=== PATIENT | male | born 1930 | race African-American/Black ===

== ENCOUNTER → 2017-02-25 | Emergency (ER) | payer OTHER ==
[~2017-02-25] MED LIST: TAMSULOSIN HCL 0.4 MG CAP.ER.24H (FP) PO ONE
[2017-02-25 19:40] VITALS: BP 151/94; PULSE 86; TEMP 98; BMI 25.4
--- NOTE | 2017-02-26 01:42 | PDOC ---
History of Present Illness - General History Source: Patient, Family, Old Records Exam Limitations: No Limitations - History of Present Illness Initial Comments: 02/26/17 01:43 The patient is a 86 year old female, with a significant past medical history of HTN and diabetes, who presents to the emergency department with urinary retention since yesterday. He states that he saw Dr. Hawley today who sent him into the ED for further evaluation. He notes that since hes been in the ED, he has urinated a small amount twice, which has helped relieve the pain caused by the retention. He also reports new onset back pain that started 2 days ago. He describes the back pain as mild, without radiation or modifying factors. The patient denies chest pain, shortness of breath, headache and dizziness. Denies fever, chills, nausea, vomit, diarrhea and constipation. Denies dysuria, frequency, urgency and hematuria. Allergies: None Past surgical history: Abdominal hernnia repair Social history: No alcohol, tobacco or drug use reported <Emiliano Kessler - Last Filed: 02/26/17 01:42> - General History Source: Patient Exam Limitations: No Limitations <Ariel Taylor - Last Filed: 02/26/17 02:13> <Emiliano Damico - Last Filed: 02/26/17 02:53> - General Chief Complaint: Urinary Problem Stated Complaint: PCP SENT/CATHETER Time Seen by Provider: 02/25/17 22:47 Past History <Emiliano Kessler - Last Filed: 02/26/17 01:42> - Past Medical History Diabetes: Yes - Surgical History Abdominal Surgery: Yes (HERNIA REPAIR) - Psycho/Social/Smoking Cessation Hx Anxiety: No Suicidal Ideation: No Smoking History: Never smoked Have you smoked in the past 12 months: No Hx Alcohol Use: No <Ariel Taylor - Last Filed: 02/26/17 02:13> <Emiliano Damico - Last Filed: 02/26/17 02:53> - Past Medical History Allergies/Adverse Reactions: Allergies Allergy/AdvReac Type Severity Reaction Status Date / Time No Known Allergies Allergy Verified 02/25/17 19:40 Home Medications: Ambulatory Orders Nystatin Powder [Nystop Powder -] 15 gm TP DAILY #1 powder 10/13/14 Terbinafine HCl [Lamisil At] 15 gm TP BID #1 cream..g. 10/13/14 Tamsulosin HCl [Flomax] 0.4 mg PO DAILY #14 cap.er.24h 02/26/17 Review of Systems - Review of Systems Able to Perform ROS?: Yes Comments:: 02/26/17 01:43 GENERAL/CONSTITUTIONAL: No fever or chills. No weakness. HEAD, EYES, EARS, NOSE AND THROAT: No change in vision. No ear pain or discharge. No sore throat. CARDIOVASCULAR: No chest pain or shortness of breath RESPIRATORY: No cough, wheezing, or hemoptysis. GASTROINTESTINAL: No nausea, vomiting, diarrhea or constipation. GENITOURINARY: +Urinary retention. No dysuria, frequency MUSCULOSKELETAL: No joint or muscle swelling or pain. No neck or back pain. SKIN: No rash NEUROLOGIC: No headache, vertigo, loss of consciousness, or change in strength/ sensation. ENDOCRINE: No increased thirst. No abnormal weight change HEMATOLOGIC/LYMPHATIC: No anemia, easy bleeding, or history of blood clots. ALLERGIC/IMMUNOLOGIC: No hives or skin allergy. <Emiliano Kessler - Last Filed: 02/26/17 01:42> *Physical Exam - Vital Signs Last Vital Signs Temp Pulse Resp BP Pulse Ox 98 F 86 18 151/94 99 02/25/17 19:37 02/25/17 19:37 02/25/17 19:37 02/25/17 19:37 02/25/17 19:37 - Physical Exam Comments: 02/26/17 01:44 GENERAL: Awake, alert, and fully oriented, in no acute distress HEAD: No signs of trauma, normocephalic, atraumatic EYES: PERRLA, EOMI, sclera anicteric, conjunctiva clear ENT: Auricles normal inspection, hearing grossly normal, nares patent, oropharynx clear without exudates. Moist mucosa NECK: Normal ROM, supple, no lymphadenopathy, JVD, or masses LUNGS: No distress, speaks full sentences, clear to auscultation bilaterally HEART: Regular rate and rhythm, normal S1 and S2, no murmurs, rubs or gallops, peripheral pulses normal and equal bilaterally. ABDOMEN: Soft, nontender, normoactive bowel sounds. No guarding, no rebound. No masses EXTREMITIES: Normal inspection, Normal range of motion, no edema. No clubbing or cyanosis. NEUROLOGICAL: Cranial nerves II through XII grossly intact. Normal speech, normal gait, no focal sensorimotor deficits SKIN: Warm, Dry, normal turgor, no rashes or lesions noted. <Emiliano Kessler - Last Filed: 02/26/17 01:42> - Vital Signs Last Vital Signs Temp Pulse Resp BP Pulse Ox 98 F 86 18 151/94 99 02/25/17 19:37 02/25/17 19:37 02/25/17 19:37 02/25/17 19:37 02/25/17 19:37 <Ariel Taylor - Last Filed: 02/26/17 02:13> - Vital Signs Last Vital Signs Temp Pulse Resp BP Pulse Ox 98 F 86 18 151/94 99 02/25/17 19:37 02/25/17 19:37 02/25/17 19:37 02/25/17 19:37 02/25/17 19:37 <Emiliano Damico - Last Filed: 02/26/17 02:53> ED Treatment Course - LABORATORY CBC & Chemistry Diagram: 02/26/17 01:30 02/26/17 01:30 <Emiliano Kessler - Last Filed: 02/26/17 01:42> - LABORATORY CBC & Chemistry Diagram: 02/26/17 01:30 02/26/17 01:30 - RADIOLOGY Radiology Studies Ordered: Category Date Time Status KIDNEY / RENAL US [US] Stat Ultrasound 02/25/17 23:16 Completed PELVIC / BLADDER US [US] Stat Ultrasound 02/25/17 23:19 Completed <Ariel Taylor - Last Filed: 02/26/17 02:13> - LABORATORY CBC & Chemistry Diagram: 02/26/17 01:30 02/26/17 01:30 - ADDITIONAL ORDERS Additional order review: Laboratory Results 02/26/17 02/26/17 01:44 01:30 Sodium 140 Potassium 4.1 Chloride 102 Carbon Dioxide 29 Anion Gap 9 BUN 14 Creatinine 1.1 Creat Clearance w eGFR > 60 Random Glucose 95 Calcium 9.3 Total Bilirubin 0.8 AST 9 L ALT 14 Alkaline Phosphatase 74 Total Protein 7.2 Albumin 4.1 Urine Color Yellow Urine Appearance Clear Urine pH 5.0 Ur Specific [place] 1.024 Urine Protein Negative Urine Glucose (UA) 2+ H Urine Ketones Negative Urine Blood Negative Urine Nitrite Negative Urine Bilirubin Negative Urine Urobilinogen Negative Ur Leukocyte Esterase Negative 02/26/17 01:30 RBC 4.21 MCV 94.5 MCHC 33.5 RDW 13.9 MPV 7.9 Neutrophils % 54.1 Lymphocytes % 26.8 Monocytes % 13.4 H Eosinophils % 5.1 H Basophils % 0.6 - Medications Given in the ED: ED Medications Discontinued Medications Generic Name Dose Route Start Last Admin Trade Name Jailene PRN Reason Stop Dose Admin Tamsulosin HCl 0.4 mg 02/26/17 01:42 02/26/17 02:26 Flomax - PO 02/26/17 01:43 0.4 mg ONCE ONE Administration <Emiliano Damico - Last Filed: 02/26/17 02:53> Medical Decision Making - Medical Decision Making 02/26/17 01:41 A portion of this note was documented by scribe services under my direction. I have reviewed the details of the note, within reason, and agree with the documentation with the following case summary and management plan written by me. Patient treated in the ED. Nursing notes are reviewed and incorporated into the medical decision-making. Vital signs reviewed. Peripheral IV access obtained by the nurse, laboratory studies are drawn and sent, reviewed and interpreted by myself. Vital Signs Temp Pulse Resp BP Pulse Ox 98 F 86 18 151/94 99 02/25/17 19:37 02/25/17 19:37 02/25/17 19:37 02/25/17 19:37 02/25/17 19:37 86-year-old male with past medical history of hypertension, diabetes, likely BPH presents with urinary retention since yesterday. Patient reports that he has developed some lower back pain. Has been having difficulty getting. However , upon arrival to ED, patient has been urinating somewhat difficulty more. Denies dysuria. But ultrasound demonstrates postvoid residual 114 mL. Case was discussed with the patient requests at this time to defer on the Ziegler catheter to trial Flomax. We'll obtain labs to rule out any postreduction renal failure. We'll obtain a UA to rule out cystitis. If workup is negative, what the patient follow -up with his primary care physician. 02/26/17 01:57 Ultrasound demonstrates no hydronephrosis. Bilateral renal cysts. Moist supportive residuals 114 mL. Psotate volume 130 mL. This is likely BPH causing the symptoms. At this time, given given that this is 140 mL and the patient reports that he is urinating now feeling better, we'll defer on Ziegler catheter placement. We'll start Flomax. Labs and urine pending. Case signed out to oncoming attending Dr. Damico for further management and disposition. <Ariel Taylor - Last Filed: 02/26/17 02:13> *DC/Admit/Observation/Transfer - Attestations Scribe Attestion: 02/26/17 01:44 Documentation prepared by Emiliano Kessler, acting as medical records receptionist for Ariel Taylor MD <Emiliano Kessler - Last Filed: 02/26/17 01:42> <Ariel Taylor - Last Filed: 02/26/17 02:13> - Discharge Dispostion Admit: No <Emiliano Damico - Last Filed: 02/26/17 02:53> Diagnosis at time of Disposition: Urinary retention BPH (benign prostatic hyperplasia) Qualifiers: Prostatic enlargement morphology: unspecified morphology Lower urinary tract symptom presence: presence of symptoms unspecified Qualified Code(s): N40.0 - Benign prostatic hyperplasia without lower urinary tract symptoms - Discharge Dispostion Disposition: HOME Condition at time of disposition: Stable - Prescriptions Prescriptions: Tamsulosin HCl [Flomax] 0.4 mg PO DAILY #14 cap.er.24h - Referrals Referrals: José Luis Nielson MD., [Staff Physician] - Johnny Zhou MD [Staff Physician] - - Patient Instructions Printed Discharge Instructions: DI for Benign Prostatic Hyperplasia, DI for Urinary Retention in Men Additional Instructions: Please take 0.4 mg flomax daily. Follow up with your primary care physician.
[2017-02-26 01:43] LABS: BASOPHIL 0.6 % (0-2.0); EOSINOPHIL 5.1 % (0-4.5); MCH 31.7 pg (25.7-33.7); MCHC 33.5 g/dl (32.0-35.9); MEAN CELL VOLUME 94.5 fl (80-96); MEAN PLT VOLUME 7.9 fl (7.5-11.1); NEUTROPHILS 54.1 % (42.8-82.8); PLATELET COUNT 175 K/MM3 (134-434); RDW 13.9 % (11.9-15.9); WHITE BLOOD COUNT 3.9 K/mm3 (4.0-10.0)
[2017-02-26 01:59] LABS: URINE APPEARANCE CLEAR; URINE BILIRUBIN NEGATIVE (NEGATIVE); URINE BLOOD NEGATIVE (NEGATIVE); URINE COLOR YELLOW; URINE GLUCOSE (UA) 2+ (NEGATIVE); URINE KETONE NEGATIVE (NEGATIVE); URINE LEUK ESTERASE NEGATIVE (NEGATIVE); URINE NITRITE NEGATIVE (NEGATIVE); URINE PROTEIN NEGATIVE (NEGATIVE); URINE UROBILINOGEN NEGATIVE E.U./dl (0.2-1.0)
[2017-02-26 02:08] LABS: ALBUMIN 4.1 g/dl (3.4-5.0); ANION GAP 9 (8-16); BILIRUBIN,TOTAL 0.8 mg/dL (0.2-1.0); CALCIUM 9.3 mg/dL (8.5-10.1); CO2 29 mmol/L (21-32); COCKROFT - GAULT 51.97; CREATININE 1.1 mg/dL (0.7-1.3); GLUCOSE,RANDOM 95 mg/dL (74-106); SGOT/AST 9 U/L (15-37); SGPT/ALT 14 U/L (12-78); TOT PROT 7.2 g/dl (6.4-8.2)
[2017-02-26 02:09] LABS: ALK PHOS 74 U/L (45-117)
== END | disposition home or self-care (01) ==
LOC: JER 19:12
DX: N40.1 Benign prostatic hyperplasia with lower urinary tract symptoms (principal); R33.8 Other retention of urine; I10 Essential (primary) hypertension; E11.9 Type 2 diabetes mellitus without complications
CPT/HCPCS: 36415; 76775-TC; 76856-TC; 80053; 81003; 85025; 87086; 99281-25

== ENCOUNTER 2017-07-16 12:40 | Emergency (ER) | payer OTHER ==
[2017-07-16 12:45] VITALS: BP 112/72; PULSE 81; TEMP 98.2; BMI 25.0
[2017-07-16] MEDS ORDERED: IBUPROFEN 600 MG TABLET (FP) PO ONE ×2 (13:41→13:43)
--- NOTE | 2017-07-16 13:41 | PDOC ---
History of Present Illness - General Chief Complaint: Eye Problem Stated Complaint: LT EYE INJURY Time Seen by Provider: 07/16/17 12:48 Past History - Past Medical History Allergies/Adverse Reactions: Allergies Allergy/AdvReac Type Severity Reaction Status Date / Time No Known Allergies Allergy Verified 07/16/17 12:45 Home Medications: Ambulatory Orders Tamsulosin HCl [Flomax] 0.4 mg PO DAILY #14 cap.er.24h 02/26/17 Aspirin Coated [Ecotrin -] 81 mg PO DAILY 07/16/17 Enalapril Maleate 2.5 mg PO ASDIR 07/16/17 Ibuprofen 600 mg PO TID PRN #21 tablet 07/16/17 Metformin HCl [Metformin HCl ER] 1,000 mg PO ASDIR 07/16/17 Tobramycin 0.3% Ophth Soln [Tobrex Ophthalmic Solution -] 2 drop OS Q6HPO #56 drops 07/16/17 Diabetes: Yes (type 2) - Surgical History Abdominal Surgery: Yes (HERNIA REPAIR) - Psycho/Social/Smoking Cessation Hx Anxiety: No Suicidal Ideation: No Smoking History: Never smoked Have you smoked in the past 12 months: No Information on smoking cessation initiated: No Hx Alcohol Use: No Drug/Substance Use Hx: No Substance Use Type: None *Physical Exam - Vital Signs Last Vital Signs Temp Pulse Resp BP Pulse Ox 98.2 F 81 17 112/72 100 07/16/17 12:44 07/16/17 12:44 07/16/17 12:44 07/16/17 12:44 07/16/17 12:44 *DC/Admit/Observation/Transfer Diagnosis at time of Disposition: Viral conjunctivitis, left eye - Discharge Dispostion Disposition: HOME Admit: No - Prescriptions Prescriptions: Ibuprofen 600 mg PO TID PRN #21 tablet PRN Reason: Pain Tobramycin 0.3% Ophth Soln [Tobrex Ophthalmic Solution -] 2 drop OS Q6HPO #56 drops - Referrals Referrals: Haider Strauss MD [Primary Care Provider] - Wilmer Dougherty MD [Staff Physician] - - Patient Instructions Printed Discharge Instructions: How to Instill Eye Drops, DI for Red Eye Additional Instructions: You have redness in your eye. Use the drops as prescribed. Finish the drops even if you feel better. Follow the dosing instructions on the bottle. Follow up with the eye doctor in one week. You have a phone number listed. You may take ibuprofen as needed for your back pain. You may take one pill every 8 hours. Follow up with your primary care doctor. Return to the ED if you have visual changes, increasing eye pain, or any changes in your symptoms.
== END 2017-07-16 14:17 | disposition home or self-care (01) ==
LOC: JERFT 12:40
DX: B30.9 Viral conjunctivitis, unspecified (principal); E11.9 Type 2 diabetes mellitus without complications
CPT/HCPCS: 99281-25

== ENCOUNTER 2017-11-05 12:58 | Emergency (ER) | payer OTHER ==
[2017-11-05 13:06] VITALS: BP 111/65; PULSE 75; TEMP 97.2; BMI 23.5
[2017-11-05] MEDS ORDERED: ERYTHROMYCIN 0.5% OPHTHALMIC OINTMENT 3.5 GM TUBE OS ONE (13:37)
[2017-11-05] MEDS ORDERED: ERYTHROMYCIN 0.5% OPHTHALMIC OINTMENT 3.5 GM TUBE ONE (13:40)
--- NOTE | 2017-11-05 13:41 | PDOC ---
History of Present Illness - General Chief Complaint: Eye Problem Stated Complaint: EYE PROBLEM Time Seen by Provider: 11/05/17 13:21 History Source: Patient Exam Limitations: No Limitations - History of Present Illness Initial Comments: 11/05/17 13:52 87 yr male c/o 2 weeks left eye discomfort tearing and a scratching feeling. Pt denies injury or foreign body. no vision changes, no headache or dizzyness. pt has history of cataracts. Severity: mild Past History - Past Medical History Allergies/Adverse Reactions: Allergies Allergy/AdvReac Type Severity Reaction Status Date / Time No Known Allergies Allergy Verified 11/05/17 13:00 Home Medications: Ambulatory Orders Tamsulosin HCl [Flomax] 0.4 mg PO DAILY #14 cap.er.24h 02/26/17 Aspirin Coated [Ecotrin -] 81 mg PO DAILY 07/16/17 Enalapril Maleate 2.5 mg PO ASDIR 07/16/17 Metformin HCl [Metformin HCl ER] 1,000 mg PO ASDIR 07/16/17 Erythromycin 0.5% Eye Ointment [Erythromycin 0.5% Eye Ointment -] 1 applic OS TID #1 tube 11/05/17 CVA: No COPD: No DVT: No Diabetes: Yes (type 2) - Surgical History Abdominal Surgery: Yes (HERNIA REPAIR) - Immunization History Immunization Up to Date: Yes - Suicide/Smoking/Psychosocial Hx Smoking History: Never smoked Have you smoked in the past 12 months: No If you are a former smoker, when did you quit?: 1969 Information on smoking cessation initiated: No Hx Alcohol Use: No Drug/Substance Use Hx: No Substance Use Type: None *Physical Exam - Vital Signs Last Vital Signs Temp Pulse Resp BP Pulse Ox 97.2 F L 75 16 111/65 100 11/05/17 13:00 11/05/17 13:00 11/05/17 13:00 11/05/17 13:00 11/05/17 13:00 - Physical Exam General Appearance: Yes: Nourished, Appropriately Dressed HEENT: positive: EOMI, CODIE, Other (left eye ) Neck: positive: Supple. negative: Tender, Lymphadenopathy (R), Lymphadenopathy (L) Respiratory/Chest: positive: Lungs Clear, Normal Breath Sounds. negative: Chest Tender Cardiovascular: positive: Regular Rhythm, Regular Rate Procedures - Eye Procedure Alcaine Drops Administered: Yes Antibiotic Oinment/Drps Admin: left eye (erythromycin) Medical Decision Making - Medical Decision Making 11/05/17 13:54 cc: left eye irritation, mild tearing no vision changes negative fluroscein stain negative fb on exam will place erythromycin ointment spoke with office and made appointment for follow up tomorrow at 1015am pt agrees with plan of care and for follow up care. *DC/Admit/Observation/Transfer Diagnosis at time of Disposition: Eye irritation - Discharge Dispostion Disposition: HOME Condition at time of disposition: Good - Prescriptions Prescriptions: Erythromycin 0.5% Eye Ointment [Erythromycin 0.5% Eye Ointment -] 1 applic OS TID #1 tube - Referrals Referrals: Haider Strauss MD [Primary Care Provider] - Wilmer Dougherty MD [Staff Physician] - - Patient Instructions Additional Instructions: follow with the eye doctor tomorrow at 1015 am use the eye ointment every 6hrs while awake - Post Discharge Activity
== END 2017-11-05 13:50 | disposition home or self-care (01) ==
LOC: JERFT 12:58
DX: H57.8 Other specified disorders of eye and adnexa (principal); E11.9 Type 2 diabetes mellitus without complications; Z79.84 Long term (current) use of oral hypoglycemic drugs
CPT/HCPCS: 99281-25

== ENCOUNTER 2017-11-27 17:43 | Emergency (ER) | payer OTHER ==
[2017-11-27 18:10] VITALS: BP 133/78; PULSE 80; TEMP 98.2; BMI 23.5
--- NOTE | 2017-11-27 19:03 | PDOC ---
History of Present Illness <Yolanda Christianson - Last Filed: 11/27/17 21:56> - General History Source: Patient, EMS, Family Exam Limitations: No Limitations - History of Present Illness Initial Comments: 11/27/17 20:12 The patient is an 87 year old male with past medical history of hypertension, diabetes, and BPH who arrives to the ED via EMS for altered mental status. As per family member, the patient left his house today to travel to the [place] via bus. When he got off the bus, he was noticed to have stumbled and fell, prompting EMS to be called. In the ED, the patient is asymptomatic and is only complaining of being tired. He denies fever or chills. <Christina Giraldo - Last Filed: 11/27/17 22:08> - General Chief Complaint: Altered Mental Status Stated Complaint: DAYSI Time Seen by Provider: 11/27/17 18:43 Past History - Past Medical History CVA: No COPD: No DVT: No Diabetes: Yes (type 2) Other medical history: glaucoma aleah eye - Surgical History Abdominal Surgery: Yes (HERNIA REPAIR) - Immunization History Immunization Up to Date: Yes - Suicide/Smoking/Psychosocial Hx Smoking History: Never smoked Have you smoked in the past 12 months: No If you are a former smoker, when did you quit?: 1970 Information on smoking cessation initiated: No Hx Alcohol Use: No Drug/Substance Use Hx: No Substance Use Type: None <Yolanda Christianson - Last Filed: 11/27/17 21:56> <Christina Giraldo - Last Filed: 11/27/17 22:08> - Past Medical History Allergies/Adverse Reactions: Allergies Allergy/AdvReac Type Severity Reaction Status Date / Time No Known Allergies Allergy Verified 11/27/17 18:10 Home Medications: Ambulatory Orders Tamsulosin HCl [Flomax] 0.4 mg PO DAILY #14 cap.er.24h 02/26/17 Aspirin Coated [Ecotrin -] 81 mg PO DAILY 07/16/17 Enalapril Maleate 2.5 mg PO ASDIR 07/16/17 Metformin HCl [Metformin HCl ER] 1,000 mg PO ASDIR 07/16/17 Erythromycin 0.5% Eye Ointment [Erythromycin 0.5% Eye Ointment -] 1 applic OS TID #1 tube 11/05/17 Review of Systems - Review of Systems Able to Perform ROS?: Yes Comments:: 11/27/17 20:21 GENERAL/CONSTITUTIONAL: Present: tired No fever or chills. HEAD, EYES, EARS, NOSE AND THROAT: No change in vision. No ear pain or discharge. No sore throat. CARDIOVASCULAR: No chest pain or shortness of breath. RESPIRATORY: No cough, wheezing, or hemoptysis. GASTROINTESTINAL: No nausea, vomiting, diarrhea or constipation. GENITOURINARY: No dysuria, frequency, or change in urination. MUSCULOSKELETAL: No joint or muscle swelling or pain. No neck or back pain. SKIN: No rash NEUROLOGIC: No headache, vertigo, loss of consciousness, or change in strength/ sensation. ENDOCRINE: No increased thirst. No abnormal weight change. HEMATOLOGIC/LYMPHATIC: No anemia, easy bleeding, or history of blood clots. ALLERGIC/IMMUNOLOGIC: No hives or skin allergy. All Other Systems: Reviewed and Negative <Christina Giraldo - Last Filed: 11/27/17 22:08> *Physical Exam - Vital Signs Last Vital Signs Temp Pulse Resp BP Pulse Ox 98.2 F 80 18 133/78 100 11/27/17 17:44 11/27/17 17:44 11/27/17 17:44 11/27/17 17:44 11/27/17 17:44 <Yolanda Christianson - Last Filed: 11/27/17 21:56> - Vital Signs Last Vital Signs Temp Pulse Resp BP Pulse Ox 98.2 F 80 18 133/78 100 11/27/17 17:44 11/27/17 17:44 11/27/17 17:44 11/27/17 17:44 11/27/17 17:44 - Physical Exam Comments: 11/27/17 20:21 GENERAL: Awake, alert and oriented to person and year, not place, in no acute distress HEAD: No signs of trauma EYES: PERRLA, EOMI, sclera anicteric, conjunctiva clear ENT: Auricles normal inspection, hearing grossly normal, nares patent, oropharynx clear without exudates. Moist mucosa NECK: Normal ROM, supple, no lymphadenopathy, JVD, or masses LUNGS: Breath sounds equal, clear to auscultation bilaterally. No wheezes, and no crackles HEART: Regular rate and rhythm, normal S1 and S2, no murmurs, rubs or gallops ABDOMEN: Soft, nontender, normoactive bowel sounds. No guarding, no rebound. No masses EXTREMITIES: Normal range of motion, no edema. No clubbing or cyanosis. No cords, erythema, or tenderness NEUROLOGICAL: Cranial nerves II through XII grossly intact. Normal speech, normal gait SKIN: Warm, Dry, normal turgor, no rashes or lesions noted. <Christina Giraldo - Last Filed: 11/27/17 22:08> ED Treatment Course - LABORATORY CBC & Chemistry Diagram: 11/27/17 20:25 11/27/17 20:25 <Yolanda Christianson - Last Filed: 11/27/17 21:56> - LABORATORY CBC & Chemistry Diagram: 11/27/17 20:25 11/27/17 20:25 - RADIOLOGY Radiograph Interpretation: 11/27/17 22:[address] as reviewed by Dr. Prater reports no acute intracranial hemmorhage, mass effect, midline shift, or hydrocephalus. Generalized, age appropriate volume loss with mild microvascular ischemic changes in the cerebral white matter <KristalChristina - Last Filed: 11/27/17 22:08> Medical Decision Making - Medical Decision Making 11/27/17 21:18 Pt presents to the ED after found confused on a bus. Patient is currently alert and oriented x 2 and denies complaints. Son reports that his father is normally able to travel by himself, but that he does get confused " when he is tired" and is unconcerned about the patient's current mental status. Patient and father deny any other associated symptoms. Will check basic labs to rule out metabolic derrangement and CT head to rule out intracranial pathology. Given that the son believes that the patient is close to his baseline, will probably discharge home if these are negative. I have advised the son that it is unsafe for the father to travel alone. 11/27/17 21:56 Labs are within normal limits. CT is negative. Will discharge home with follow up with PMD. <Yolanda Christianson - Last Filed: 11/27/17 21:56> *DC/Admit/Observation/Transfer - Discharge Dispostion Admit: No <Yolanda Christianson - Last Filed: 11/27/17 21:56> - Attestations Scribe Attestion: 11/27/17 20:23 Documentation prepared by Christina Giraldo, acting as medical diagnostic radiographer for Yolanda Christianson MD. <Christina Giraldo - Last Filed: 11/27/17 22:08> Diagnosis at time of Disposition: Dementia Qualifiers: Dementia type: unspecified type Dementia behavioral disturbance: without behavioral disturbance Qualified Code(s): F03.90 - Unspecified dementia without behavioral disturbance - Discharge Dispostion Disposition: HOME - Patient Instructions Printed Discharge Instructions: Dementia Additional Instructions: return to the ED for worsening confusion, passing out, other new or worsening symptoms. Make sure that you follow up with your doctor next week. Your father should not travel on his own any more.
[2017-11-27 20:39] LABS: BASO % 1.1 % (0-2.0); HEMOGLOBIN 13.4 GM/dL (11.7-16.9); MCH 31.3 pg (25.7-33.7); MONO % 9.2 % (3.8-10.2)
[2017-11-27 20:42] LABS: EOS % 1.1 % (0-4.5); HEMATOCRIT 40.4 % (35.4-49); LYMPH % 15.9 % (8-40); MCHC 33.2 g/dl (32.0-35.9); MEAN CELL VOLUME 94.3 fl (80-96); MEAN PLT VOLUME 8.2 fl (7.5-11.1); NEUT % 72.7 % (42.8-82.8); PLATELET COUNT 204 K/MM3 (134-434); RBC 4.28 M/mm3 (4.00-5.60); RDW 13.7 % (11.9-15.9); WHITE BLOOD COUNT 6.8 K/mm3 (4.0-10.0)
[2017-11-27 21:02] LABS: ALBUMIN 4.1 g/dl (3.4-5.0); ANION GAP 6 (8-16); BILIRUBIN,TOTAL 1.5 mg/dL (0.2-1.0); BLOOD UREA NITROGEN 20 mg/dL (7-18); CALCIUM 8.7 mg/dL (8.5-10.1); CHLORIDE 100 mmol/L (98-107); CO2 28 mmol/L (21-32); CREATININE 1.2 mg/dL (0.7-1.3); GLUCOSE,RANDOM 220 mg/dL (74-106); SGPT/ALT 23 U/L (12-78); SODIUM 134 mmol/L (136-145); TOT PROT 7.8 g/dl (6.4-8.2)
[2017-11-27 21:03] LABS: ALK PHOS 90 U/L (45-117)
[2017-11-27 21:24] LABS: POTASSIUM 3.8 mmol/L (3.5-5.1); SGOT/AST 34 U/L (15-37)
[2017-11-28 01:17] LABS: PLATELET ESTIMATE ADEQUATE
== END 2017-11-27 22:15 | disposition home or self-care (01) ==
LOC: JER 17:43
DX: F03.90 Unspecified dementia, unspecified severity, without behavioral disturbance, psychotic disturbance, mood disturbance, and anxiety (principal); E11.9 Type 2 diabetes mellitus without complications; Z79.84 Long term (current) use of oral hypoglycemic drugs; Z79.82 Long term (current) use of aspirin
CPT/HCPCS: 36415; 70450-TC; 80053; 82962; 85025; 99281-25

== ENCOUNTER 2019-02-20 13:30 | Emergency (ER) | payer OTHER ==
[2019-02-20 13:50] VITALS: BP 115/66; PULSE 62; TEMP 97.4; BMI 25.0
--- NOTE | 2019-02-20 15:35 | PDOC ---
History of Present Illness - General Chief Complaint: Eye Problem Stated Complaint: RT EYE PAIN Time Seen by Provider: 02/20/19 13:57 History Source: Patient, Care Provider Exam Limitations: No Limitations - History of Present Illness Initial Comments: 02/20/19 17:38 88 yo M w/ a h/o HTN, diabetes, BPH, glaucoma, comes in c/o 1 month of L itchy eye. He went to [place] 2 weeks ago and has had worsening of the itching. Also c /o mild occasional sneezing. He does not take anything for allergies. NO other complaints today, no change in vision from baseline, no discharge from eyes, no contact lens use, no known sick contacts with pink eye, no recent travel, no known sick contacts, no fever/chills, no NVD, no other complaints today. Pt thinks he has an ophtalmologist appointment on the . He uses timolol, and states that he puts it in 1-2 times a day and sometimes more when he has itching. 02/20/19 17:41 Past History - Past Medical History Allergies/Adverse Reactions: Allergies Allergy/AdvReac Type Severity Reaction Status Date / Time No Known Allergies Allergy Verified 02/20/19 13:34 Home Medications: Ambulatory Orders Tamsulosin HCl [Flomax] 0.4 mg PO DAILY #14 cap.er.24h 02/26/17 Aspirin Coated [Ecotrin -] 81 mg PO DAILY 07/16/17 Enalapril Maleate 2.5 mg PO ASDIR 07/16/17 metFORMIN HCL [Metformin HCl ER] 1,000 mg PO ASDIR 07/16/17 Erythromycin 0.5% Eye Ointment [Erythromycin 0.5% Eye Ointment -] 1 applic OS TID #1 tube 11/05/17 Dextran 70/Hypromellose [Artificial Tears] 1 each OU TID 4 Days #1 vial Loratadine 10 mg PO DAILY 7 Days #20 tablet 02/20/19 CVA: No COPD: No DVT: No Diabetes: Yes (type 2) - Surgical History Abdominal Surgery: Yes (HERNIA REPAIR) - Immunization History Immunization Up to Date: Yes - Suicide/Smoking/Psychosocial Hx Smoking History: Never smoked Have you smoked in the past 12 months: No If you are a former smoker, when did you quit?: 1970 Hx Alcohol Use: No Drug/Substance Use Hx: No Substance Use Type: None Review of Systems - Review of Systems Able to Perform ROS?: Yes Constitutional: No: Chills, Fever, Malaise, Night Sweats HEENTM: Yes: Other (no eye discharge, no eye redness). No: Eye Pain, Blurred Vision, Recent change in vision, Double Vision, Throat Pain Respiratory: No: Cough, Shortness of Breath Cardiac (ROS): No: Chest Pain, Palpitations, Chest Tightness ABD/GI: No: Diarrhea, Nausea, Vomiting, Abdominal cramping : No: Dysuria, Hematuria Musculoskeletal: No: Back Pain Integumentary: No: Rash Neurological: No: Headache, Numbness, Dizziness Psychiatric: No: Change in Appetite Endocrine: No: Unexplained Weight Loss *Physical Exam - Vital Signs Last Vital Signs Temp Pulse Resp BP Pulse Ox 97.4 F L 62 18 115/66 99 02/20/19 13:31 02/20/19 13:31 02/20/19 13:31 02/20/19 13:31 02/20/19 13:31 - Physical Exam General Appearance: Yes: Nourished. No: Apparent Distress HEENT: positive: EOMI, CODIE, Normal ENT Inspection, Normal Voice, Other (Vision as documented (decreased in L eye, which has been going on for a year as per patient, not acute)). negative: Pale Conjunctivae, Scleral Icterus (R), Scleral Icterus (L) Neck: positive: Supple. negative: Decreased range of motion, Tender midline Respiratory/Chest: negative: Respiratory Distress, Accessory Muscle Use Cardiovascular: positive: Regular Rate Musculoskeletal: positive: Normal Inspection Extremity: positive: Normal Capillary Refill, Normal Inspection, Normal Range of Motion. negative: Tender, Pedal Edema Integumentary: positive: Normal Color, Dry. negative: Jaundice, Rash Neurologic: positive: Fully Oriented, Alert, Normal Mood/Affect Medical Decision Making - Medical Decision Making 02/20/19 15:31 I spoke to Johnny, patient's son, reached at [phone] 02/20/19 17:45 Pt's son confirmed patient's history. WIll prescribe loratadine for possible allergies causing the itchy eye, will also give artificial tears and will reinforce need to see the harp action assembler. I explained to both patient and son that Timolol is not to be taen on an as needed basis, it is a medication for glaucoma which needs to be used exactly as prescribed. They verbalized understanding. Return for worsening/concerning symptpoms Pt and son verbalize understanding. Pt's son confirms that pt has an harp action assembler and he will call thursday morning to make a follow up appointment *DC/Admit/Observation/Transfer Diagnosis at time of Disposition: Itchy eyes - Discharge Dispostion Disposition: HOME Condition at time of disposition: Stable - Prescriptions Prescriptions: Dextran 70/Hypromellose [Artificial Tears] 1 each OU TID 4 Days #1 vial Loratadine 10 mg PO DAILY 7 Days #20 tablet - Referrals Referrals: Haider Strauss MD [Primary Care Provider] - - Patient Instructions Additional Instructions: PLEASE ONLY TAKE THE TIMOLOL PRESCRIBED. YOU CANNOT TAKE MORE THAN PRESCRIBED , IT IS NOT FOR ITCHY EYES. PLEASE SEE YOUR OPHTALMOLOGIST SCHEDULED. ALSO SEE YOUR REGULAR DOCTOR. RETURN TO THE ER FOR WORSENING/CONCERNING SYMPTOMS. THANK YOU - Post Discharge Activity
== END 2019-02-20 15:38 | disposition home or self-care (01) ==
LOC: JERFT 13:30 → JER 13:30 → JERFT 15:38
DX: J30.9 Allergic rhinitis, unspecified (principal); E11.9 Type 2 diabetes mellitus without complications; Z79.84 Long term (current) use of oral hypoglycemic drugs; N40.0 Benign prostatic hyperplasia without lower urinary tract symptoms; I10 Essential (primary) hypertension; H40.9 Unspecified glaucoma
CPT/HCPCS: 99281-25